=== PATIENT | female | born 1985 | race Caucasian/White ===

== ENCOUNTER 2017-06-04 20:06 | Emergency (ER) | payer OTHER ==
[~2017-06-04] VITALS: Ht 162.6 cm; Wt 113.6 kg
[2017-06-04 20:25] VITALS: BP 120/71
--- NOTE | 2017-06-04 21:57 | PHYS DOC ---
Past History Past Medical History: No Pertinent History Past Surgical History: , Gastric Bypass Alcohol Use: None Drug Use: None Adult General Chief Complaint Chief Complaint: FOOT INJURY PAIN [facility] HPI Patient is a 31 year old F who presents with foot pain. Naomi states that approximately 2 weeks ago she stepped on a small splinter. She feels that the majority or all of the splint was removed thereafter. Since that time she has had a knot developed on the bottom of her foot where the splinter went in that seems to be associated with generalized pain in the foot as well as swelling. She does not note numbness or tingling. No weakness is noted. No warmth to the area or redness is noted. No fever sweats or chills or other symptoms consistent with infection are noted Review of Systems Review of Systems Constitutional: Denies fever or chills [] Eyes: Denies change in visual acuity, redness, or eye pain [] HENT: Denies nasal congestion or sore throat [] Respiratory: Denies cough or shortness of breath [] Cardiovascular: No additional information not addressed in HPI [] GI: Denies abdominal pain, nausea, vomiting, bloody stools or diarrhea [] : Denies dysuria or hematuria [] Musculoskeletal: Denies back pain or joint pain [] Integument: Denies rash or skin lesions [] Neurologic: Denies headache, focal weakness or sensory changes [] Endocrine: Denies polyuria or polydipsia [] Family History Family History Noncontributory Current Medications Current Medications Reviewed Allergies Allergies Allergies Coded Allergies Type Severity Reaction Last Updated Verified Penicillins Allergy Intermediate rash 12/15/14 No Physical Exam Physical Exam Constitutional: Well developed, well nourished, no acute distress, non-toxic appearance. [] HENT: Normocephalic, atraumatic, bilateral external ears normal, oropharynx moist, no oral exudates, nose normal. [] Eyes: PERRLA, EOMI, conjunctiva normal, no discharge. [] Cardiovascular:Heart rate regular rhythm, no murmur [] Lungs & Thorax: Bilateral breath sounds clear to auscultation [] Skin: Warm, dry, no erythema, no rash. [] Plantar surface of left foot mid foot closest to the heel soft nodule approximately 1-2 cm noted without erythema. Mild tenderness to palpation over the nodule. Generalized tenderness to palpation over the entire foot was noted mild swelling of the left foot was noted without any redness or signs of infection Extremities: No tenderness, no cyanosis, no clubbing, ROM intact, no edema. [] Neurologic: Alert and oriented X 3, normal motor function, normal sensory function, no focal deficits noted. [] Psychologic: Affect normal, judgement normal, mood normal. [] Current Patient Data Vital Signs Vital Signs Date Time Temp Pulse Resp B/P (MAP) Pulse Ox O2 Delivery O2 Flow Rate FiO2 06/04/17 20:25 98.3 89 20 99 Room Air Radiology/Procedures Radiology/Procedures Imaging was declined Course & Med Decision Making Course & Med Decision Making Pertinent Labs and Imaging studies reviewed. (See chart for details) Dragon Disclaimer Dragon Disclaimer This chart was dictated in whole or in part using Voice Recognition software in a busy, high-work load, and often noisy Emergency Department environment. It may contain unintended and wholly unrecognized errors or omissions. Departure Departure: Impression: Primary Impression: Seroma due to trauma Disposition: HOME, SELF-CARE Condition: LEFT WITHOUT BEING SEEN Referrals: LAURIE MCGRATH MD (PCP) Patient Instructions: Foot Contusion Additional Instructions: Naomi was seen in the emergency department for foot pain. No emergency medical condition was found on history or physical exam. Her pain is most consistent with a seroma on the bottom of her foot. She was advised to follow up with podiatry as soon as possible for further management [facility] [phone] STEPHEN GOODWIN MD Jun 04, 2017 21:57
[2017-06-04] MEDS ORDERED: DOXY100T9 PO (22:03)
== END 2017-06-04 22:00 | disposition home or self-care (01) ==
LOC: ER 20:06
DX: S90.32XA Contusion of left foot, initial encounter (principal); Z98.84 Bariatric surgery status; Z88.0 Allergy status to penicillin; W22.8XXA Striking against or struck by other objects, initial encounter; Y93.89 Activity, other specified; Y99.8 Other external cause status; Y92.89 Other specified places as the place of occurrence of the external cause
CPT/HCPCS: 99281; 99283